=== PATIENT | female | born 1990 | race African-American/Black ===

== ENCOUNTER 2019-02-23 21:05 | Emergency (ER) | payer BC ==
[~2019-02-23] VITALS: Ht 170.2 cm; Wt 79.8 kg
--- NOTE | 2019-02-23 21:19 | NUR ---
[id number] FR WORK FOR WITNESSED TONIC-CLONIC SEIZURE LASTING 1 MIN, BG 99 IN FIELD, UPON TRANFER FR GURNEY TO BED, PT REFUSING ANY FURTHER VS, MEDICAL EVALUATION OR TX. PT AOX4, RESP EVEN & UNLABORED, AMBULATORY W/ STEADY GAIT, CONTINUES TO REFUSE ANY FURTHER TX AFTER EXPLAINING RISKS & BENEFITS FOR FURTHER MEDICAL EVALUATION.
[2019-02-23] MEDS ORDERED: IBUPROFEN 600 MG TABLET PO ONE (21:42)
--- NOTE | 2019-02-23 21:50 | NUR ---
MEDICATION NOT AVAILABLE IN UNIT. MEDICATION WAS TAKEN FROM ROYCE. MEDS ADMININTERED OT PT ORDERED
[2019-02-23] MEDS: LamoTRIgine 25 MG TABLET PO STA (21:55)
[2019-02-23] MEDS: IBUPROFEN 600 MG TABLET PO ONE (21:55)
[2019-02-23] MEDS: LamoTRIgine 100 MG TABLET ONE (21:57)
--- NOTE | 2019-02-23 23:00 | NUR ---
DCPatient discharged to home in stable condition. Written and verbal after care instructions given. Patient verbalizes understanding of instruction. Pt ambulatory with a steady gait
[2019-02-24 00:35] VITALS: BP 138/77
== END 2019-02-23 23:00 | disposition home or self-care (01) ==
LOC: ER 21:05
DX: R56.9 Unspecified convulsions (principal)